=== PATIENT | female | born 1975 | race Caucasian/White ===

== ENCOUNTER 2022-04-08 21:22 | Emergency (ER) | payer MEDICAID ==
[~2022-04-08] VITALS: Ht 157.5 cm; Wt 84.4 kg
[2022-04-08 21:22] VITALS: BP_SYST 164
--- NOTE | 2022-04-08 21:22 | NUR ---
Pt placed to ER bed 07 with mother. Pt report given to EMILY Wallace.
[2022-04-08] MEDS ORDERED: LIDOCAINE 1% 10 MG/ML, 20 ML MDV INJ ONE (21:45)
[2022-04-08] MEDS ORDERED: BACITRACIN 1 GM OINT TP ONE (21:45)
--- NOTE | 2022-04-08 22:17 | NUR ---
Patient given written and verbal discharge instructions and verbalizes understanding. ER MD discussed with patient the results and treatment provided. Patient in stable condition. Rx of given. Patient educated on pain management and to follow up with PMD. Pain Scale [0]. Opportunity for questions provided and answered.
== END 2022-04-08 22:18 | disposition home or self-care (01) ==
LOC: SED 21:22
DX: S61.210A Laceration without foreign body of right index finger without damage to nail, initial encounter (principal); E11.9 Type 2 diabetes mellitus without complications; Z79.899 Other long term (current) drug therapy; W23.1XXA Caught, crushed, jammed, or pinched between stationary objects, initial encounter; Y93.89 Activity, other specified; Y92.89 Other specified places as the place of occurrence of the external cause; Y99.8 Other external cause status
CPT/HCPCS: 99282; 12001; J2001